=== PATIENT | female | born 1945 | race Caucasian/White ===

== ENCOUNTER 2017-06-21 20:23 | Emergency (ER) | payer MEDICARE, OTHER ==
--- NOTE | 2017-06-21 20:32 | UC ---
Eye Complaint HPI - HPI Summary HPI Summary: 71 year old female presents with complains of glass embedded in her left eye. - History of Current Complaint Chief Complaint: UCEye Stated Complaint: R EYE INJURY Time Seen by Provider: 06/21/17 20:32 Hx Obtained From: Patient Onset/Duration: Sudden Onset Severity Initially: Moderate Severity Currently: Moderate Pain Scale Used: 0-10 Numeric - 7 - Allergies/Home Medications Allergies/Adverse Reactions: Allergies Allergy/AdvReac Type Severity Reaction Status Date / Time Alendronate [From Fosamax] Allergy Pain Verified 06/21/17 20:30 Azithromycin [From Zithromax] AdvReac GI Upset Verified 06/21/17 20:30 PMH/Surg Hx/FS Hx/Imm Hx Previously Healthy: Yes - Surgical History Surgical History: Yes Surgery Procedure, Year, and Place: [facility] - Social History Alcohol Use: None Substance Use Type: None Smoking Status (MU): Never Smoked Tobacco Review of Systems Constitutional: Negative Skin: Negative Eyes: Drainage, Eye Redness ENT: Negative Respiratory: Negative Cardiovascular: Negative Gastrointestinal: Negative Genitourinary: Negative Motor: Negative Neurovascular: Negative Musculoskeletal: Negative Neurological: Negative Psychological: Negative Is Patient Immunocompromised?: Yes All Other Systems Reviewed And Are Negative: Yes Physical Exam Triage Information Reviewed: Yes Vital Signs: Initial Vital Signs Temp 36.4 C 06/21/17 20:26 Pulse 77 06/21/17 20:26 Resp 18 06/21/17 20:26 Pulse Ox 100 06/21/17 20:26 Vital Signs Reviewed: Yes Eyes: Positive: Conjunctiva Inflamed, Discharge ENT Exam: Normal Dental Exam: Normal Neck exam: Normal Neck: Positive: 1 Respiratory Exam: Normal Cardiovascular Exam: Normal Abdominal Exam: Normal Musculoskeletal Exam: Normal Neurological Exam: Normal Psychological Exam: Normal Skin Exam: Normal Eye Complaint Course/Dx - Differential Dx/Diagnosis Provider Diagnoses: fluorescent glass embedded in right eye Discharge - Discharge Plan Condition: Stable Disposition: OTHER Discharge Disposition Comment: patient suggested to go to the er. Patient Education Materials: Eye Pain (ED) Referrals: Soto Harper MD [Primary Care Provider] - Additional Instructions: Patient suggested to go to the ER for fluorescent glass embedded in the right eye.
[2017-06-21] MEDS ORDERED: BSS OPTH.SOL* BTL ONE (20:48)
[2017-06-21] MEDS ORDERED: Fluorescein Sodium TOPICAL* 1 MG TEST ONE (20:48)
[2017-06-21] MEDS ORDERED: Tetracaine 0.5% OPTH.SOL 4 ML* 1 DROP BTL ONE (20:48)
== END 2017-06-21 21:05 ==
LOC: UCEAST 20:23
DX: T15.91XA Foreign body on external eye, part unspecified, right eye, initial encounter (principal); S00.251A Superficial foreign body of right eyelid and periocular area, initial encounter; X58.XXXA Exposure to other specified factors, initial encounter; Y93.9 Activity, unspecified; Y92.9 Unspecified place or not applicable; Y99.9 Unspecified external cause status
CPT/HCPCS: 99211; A9270-GY; G0463

== ENCOUNTER 2017-06-21 21:13 | Emergency (ER) | payer MEDICARE, OTHER ==
[2017-06-21] MEDS ORDERED: Tetracaine 0.5% OPTH.SOL 4 ML* 1 DROP BTL RIGHT EYE ONE (21:59)
[2017-06-21] MEDS ORDERED: Fluorescein Sodium TOPICAL* 1 MG TEST OPHTHALMIC ONE (22:23)
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
[2017-06-21 23:14] VITALS: BP 149/75
--- NOTE | 2017-06-22 07:57 | RAD ---
INDICATION: Pain in the RIGHT eye following injury with broken glass. COMPARISON: No relevant prior exams available on the [facility] PACS for comparison. TECHNIQUE: Multidetector CT base of the skull through mandible without contrast. Multiplanar reformation. REPORT: No abnormality of the preseptal or postseptal orbits evident. The ocular globes are symmetric. No soft tissue inflammatory change, loculated hematoma, or conspicuous foreign body evident. The orbital and maxillary sinus margins, zygomatic arches, lamina papyracea, base of the maxilla, pterygoid plates, and nasal bones are intact. The mandible is intact. Normal temporal mandibular joint alignment. Clear paranasal sinuses. IMPRESSION: No evidence for RIGHT orbital foreign body or traumatic injury.
== END 2017-06-21 23:30 | disposition home or self-care (01) ==
LOC: ED 21:13
DX: H57.12 Ocular pain, left eye (principal); E78.00 Pure hypercholesterolemia, unspecified; X58.XXXA Exposure to other specified factors, initial encounter; Y92.9 Unspecified place or not applicable
CPT/HCPCS: 70480; 99282; A9270-GY

== ENCOUNTER 2018-03-24 02:06 | Emergency (ER) | payer MEDICARE, OTHER ==
[2018-03-24] MEDS ORDERED: NS 0.9% 1000 ML* 1,000 ML IV ONE (02:47)
[2018-03-24] MEDS ORDERED: Ondansetron ODT TAB* 4 MG SL ONE (02:48)
[2018-03-24] MEDS ORDERED: Morphine VIAL* 4 MG/ML VIAL (1 ml vial) IV ONE (02:48)
--- NOTE | 2018-03-24 02:57 | ED ---
Abdominal Pain/Female - HPI Summary HPI Summary: This is declan Carrasquillo documenting for attending physician Aixa Olivarez M.D. Pt is a 72 y/o female who presents to [facility] c/o abdominal pain for 2 days. She states the pain is worsening, is 5/10 in severity, and is worsened by sitting. Pt also c/o subjective fever, chills, and diarrhea, but denies any vomiting or urinary symptoms. She denies any abdominal surgeries. PMHx diverticulitis (twice ). - History of Current Complaint Chief Complaint: EDAbdPain Stated Complaint: ABD PAIN Time Seen by Provider: 03/24/18 02:34 Hx Obtained From: Patient Onset/Duration: Gradual Onset, Lasting Days - 2, Worse Since Timing: Constant Severity Currently: Moderate Pain Intensity: 5 Pain Scale Used: 0-10 Numeric Location: Diffuse Radiates: No Aggravating Factor(s): Other: - Sitting Alleviating Factor(s): Nothing Associated Signs and Symptoms: Positive: Fever, Diarrhea, Other: - Chills. Negative: Urinary Symptoms, Nausea, Vomiting Allergies/Adverse Reactions: Allergies Allergy/AdvReac Type Severity Reaction Status Date / Time alendronate sodium Allergy Altered Verified 03/24/18 02:16 [From Fosamax] Mental Status azithromycin Allergy Stomach Verified 03/24/18 02:17 Cramps PMH/Surg Hx/FS Hx/Imm Hx Endocrine/Hematology History: Denies: Hx Diabetes Cardiovascular History: Reports: Hx Hypercholesterolemia Denies: Hx Hypertension, Hx Pacemaker/ICD Respiratory History: Reports: Hx Pneumonia GI History: Reports: Hx Diverticulosis, Other GI Disorders - Hx Hemorrhoids History: Denies: Hx Renal Disease Sensory History: Denies: Hx Hearing Aid Psychiatric History: Denies: Hx Panic Disorder - Cancer History Hx Chemotherapy: No Hx Radiation Therapy: No - Surgical History Surgery Procedure, Year, and Place: [facility] Infectious Disease History: No Infectious Disease History: Denies: Traveled Outside the [place] in Last 30 Days - Family History Known Family History: Positive: Cardiac Disease - [place], Hypertension, Other - Lung CA, Guillain-[place] syndrome - Social History Alcohol Use: Occasionally Substance Use Type: Reports: None Hx Tobacco Use: No Smoking Status (MU): Never Smoked Tobacco Review of Systems Positive: Fever, Chills Positive: Abdominal Pain, Diarrhea. Negative: Vomiting, Nausea Genitourinary: Negative All Other Systems Reviewed And Are Negative: Yes Physical Exam - Summary Physical Exam Summary: VITAL SIGNS: Reviewed. GENERAL: Patient is a well-developed and nourished FEMALE who is lying comfortable in the stretcher. Patient is not in any acute respiratory distress. HEAD AND FACE: No signs of trauma. No ecchymosis, hematomas or skull depressions. No sinus tenderness. EYES: PERRLA, EOMI x 2, No injected conjunctiva, no nystagmus. EARS: Hearing grossly intact. Ear canals and tympanic membranes are within normal limits. MOUTH: Oropharynx within normal limits. NECK: Supple, trachea is midline, no adenopathy, no JVD, no carotid bruit, no c- spine tenderness, neck with full ROM. CHEST: Symmetric, no tenderness at palpation LUNGS: Clear to auscultation bilaterally. No wheezing or crackles. CVS: Regular rate and rhythm, S1 and S2 present, no murmurs or gallops appreciated. ABDOMEN: Soft. No signs of distention. No rebound no guarding, and no masses palpated. Bowel sounds are normal. RLQ tenderness. EXTREMITIES: FROM in all major joints, no edema, no cyanosis or clubbing. NEURO: Alert and oriented x 3. No acute neurological deficits. Speech is normal and follows commands. SKIN: Dry and warm Triage Information Reviewed: Yes Vital Signs On Initial Exam: Initial Vitals Temp Pulse Resp BP Pulse Ox 97.7 F 85 16 123/72 100 03/24/18 02:10 03/24/18 02:10 03/24/18 02:10 03/24/18 02:10 03/24/18 02:10 Vital Signs Reviewed: Yes Diagnostics - Vital Signs Vital Signs Temp Pulse Resp BP Pulse Ox 03/24/18 02:10 97.7 F 85 16 123/72 100 - Laboratory Result Diagrams: 03/24/18 02:55 03/24/18 02:55 Lab Statement: Any lab studies that have been ordered have been reviewed, and results considered in the medical decision making process. - CT CT A/P CT Interpretation: Positive (See Comments) - Acute sigmoid diverticulitis. ED physician reviewed radiology report. CT Interpretation Completed By: Radiologist Abdominal Pain Fem Course/Dx - Course Course Of Treatment: Pt is a 72 y/o female who presents to [facility] c/o abdominal pain for 2 days. She states the pain is worsening, is 5/10 in severity, and is worsened by sitting. Pt also c/o subjective fever, chills, and diarrhea, but denies any vomiting or urinary symptoms. PMHx diverticulitis (twice). A physical exam revealed RLQ tenderness. A CT A/P revealed Acute sigmoid diverticulitis. Final dx is sigmoid diverticulitis. Pt will be discharged home with a prescription for Flagyl and Levaquin. Pt is agreeable with this plan. - Diagnoses Provider Diagnoses: Sigmoid diverticulitis Discharge - Sign-Out/Discharge Documenting (check all that apply): Patient Departure - Discharge - Discharge Plan Condition: Stable Disposition: HOME Prescriptions: Levofloxacin TAB* [Levaquin TAB*] 500 mg PO DAILY #7 tab metroNIDAZOLE [Flagyl 500 MG TAB] 500 mg PO TID #20 tab Patient Education Materials: Diverticulitis (ED) Referrals: Soto Harper MD [Primary Care Provider] - (1-2 days) Additional Instructions: RETURN TO THE EMERGENCY DEPARTMENT FOR CHANGING OR WORSENING SYMPTOMS
[2018-03-24] MEDS ORDERED: Morphine INJ* 2 MG/ML 1 ML SYRINGE (TWO MG - NEW SYRINGE VERSION) ONE (02:58)
[2018-03-24 03:09] LABS: ABS Basophils 0 10^3/ul (0-0.2); ABS Eosinophils 0 10^3/ul (0-0.6); ABS Lymphocytes 1.2 10^3/ul (1.0-4.8); ABS Monocytes 1.2 10^3/ul (0-0.8); ABS Neutrophils 12.7 10^3/ul (1.5-7.7); ABS Nucleated RBC 0 10^3/ul; Eosinophil % 0.3 % (0-6); Hematocrit 46 % (35-47); Hemoglobin 15.3 g/dl (12.0-16.0); Lymphocyte % 8.2 % (25-47); Mean Corpuscular HGB Conc 33 g/dl (31-36); Mean Corpuscular Hemoglobin 30 pg (27-31); Mean Corpuscular Volume 91 fL (80-97); Mean Platelet Volume 7.8 um3 (7.4-10.4); Nucleated Red Blood Cells % 0; Platelet Count 204 10^3/ul (150-450); Red Blood Count 5.05 10^6/ul (4.00-5.40); Red Cell Distribution Width 13 % (10.5-15); White Blood Count 15.2 10^3/ul (3.5-10.8)
[2018-03-24 03:15] LABS: INR 1.03 (0.77-1.02)
[2018-03-24 03:24] LABS: EGFR Non-African American 48.8 (>60)
[2018-03-24] MEDS ORDERED: Iodixanol* (CONTRAST) 320 MG/ML 100 ML SDV IV ONE (03:35)
[2018-03-24 06:08] LABS: Urine Appearance Clear; Urine Blood Negative (Negative); Urine Color Straw; Urine Ketones Negative (Negative); Urine Protein Negative (Negative); Urine Red Blood Cell Absent (Absent); Urine Specific Gravity 1.031 (1.010-1.030); Urine Urobilinogen Negative (Negative); Urine White Blood Cell Trace(0-5/hpf) (Absent)
[2018-03-24] MEDS ORDERED: Levofloxacin TAB* 500 MG PO ONE (06:31)
[2018-03-24] MEDS ORDERED: metroNIDAZOLE TAB* 250 MG PO ONE (06:32)
[2018-03-24 06:56] VITALS: BP 131/76
--- NOTE | 2018-03-24 08:07 | RAD ---
CLINICAL HISTORY: Abdominal pain COMPARISON: May 31, 2015 TECHNIQUE: Multiple contiguous axial CT scans were obtained of the abdomen and pelvis after the administration of intravenous contrast. Coronal and sagittal multiplanar reformations are submitted for review. Oral contrast was administered. FINDINGS: LUNG BASES: The lung bases are clear. LIVER: The liver is diffusely low in attenuation compared to the spleen. There are no focal hepatic parenchymal masses. BILE DUCTS: There is no intrahepatic or extrahepatic biliary dilatation. GALLBLADDER: The gallbladder is normal, without pericholecystic inflammatory change. PANCREAS: The pancreas is normal, without mass or ductal dilatation. SPLEEN: Normal in size and appearance. UPPER GI TRACT: Evaluation of the gastrointestinal tract is limited by incomplete gastric distention. The upper GI tract is unremarkable. SMALL BOWEL AND MESENTERY: The small bowel is normal in contour, course, and caliber. There is no obstruction or dilatation. COLON: There is articular severe descending and sigmoid colon. There is pericolic fat or change along the sigmoid colon without loculated fluid collection. ADRENALS: Normal bilaterally. KIDNEYS: The kidneys are normal in shape, size, contour, and axis. There is no hydronephrosis or nephrolithiasis. BLADDER: The bladder is smooth in contour. PELVIC ORGANS: The uterus and adnexa are grossly normal for technique. AORTA: The aorta is normal. IVC: Unremarkable LYMPH NODES: There is no lymphadenopathy by size criteria. ABDOMINAL WALL: There is a small fat-containing umbilical hernia. BONES AND SOFT TISSUES: There are mild diffuse degenerative changes. OTHER: None IMPRESSION: 1. SIGMOID DIVERTICULITIS, WITHOUT LOCULATED FLUID COLLECTION TO SUGGEST ABSCESS. 2. FATTY INFILTRATION OF LIVER. R2
== END 2018-03-24 06:46 | disposition home or self-care (01) ==
LOC: ED 02:06
DX: K57.32 Diverticulitis of large intestine without perforation or abscess without bleeding (principal); R50.9 Fever, unspecified; R19.7 Diarrhea, unspecified; Z88.1 Allergy status to other antibiotic agents; Z88.8 Allergy status to other drugs, medicaments and biological substances; Z82.49 Family history of ischemic heart disease and other diseases of the circulatory system; Z80.1 Family history of malignant neoplasm of trachea, bronchus and lung; Z84.89 Family history of other specified conditions
CPT/HCPCS: 36415; 74177; 80053; 81003; 81015; 82150; 83605; 83690; 83735; 85025; 85610; 85730; 86140; 87086; 96361; 96374; 99283; A9270-GY; J2270; Q9967